=== PATIENT | female | born 1965 | race Caucasian/White ===

== ENCOUNTER 2023-10-04 14:48 | Emergency (ER) | payer BC, SELFPAY ==
[2023-10-04] VITALS (7 sets, daily range): BP systolic 168–180; BP diastolic 101–111; PULSE 74–84; RESP 18; TEMP 36.4; O2SAT 97–98; BMI 39.2
--- NOTE | 2023-10-04 | CRLHL7_ITS ---
For Patients: As a result of the Century Cures Act, medical imaging exams and procedure reports are released immediately into your electronic medical record. You may view this report before your referring provider. If you have questions, please contact your health care provider. INDICATION: Chest pain. TECHNIQUE: Chest 1 views. COMPARISON: None. FINDINGS: Cardiovascular and mediastinum: Heart size and vasculature are normal in caliber and appearance. Lungs and pleural spaces: Lungs are clear. No sign of infiltrate or mass. No sign of pleural effusion. No pneumothorax. Bones and soft tissues: No significant findings. IMPRESSION: No acute or significant findings. Dictated by Jens Tobin MD @ 10/04/2023 3:45:16 PM (Electronically Signed)
--- NOTE | 2023-10-04 15:08 | ED.CHESTPAIN ---
HPI - Chest Pain General Time Seen by Provider: 15:08 Date Seen: 10/04/23 Chief Complaint: Chest Pain Stated Complaint: chest pain Time Seen by Provider: 10/04/23 15:08 Source: patient Mode of arrival: ambulatory Limitations: no limitations History of Present Illness HPI narrative: Cindy is a very pleasant 58-year-old female with history of have 1 ppd tobacco use, hypertension, hyperlipidemia who comes to the emergency room for evaluation regarding chest pain. Patient had the onset of substernal chest pain while working at a computer at approximately 1230. This radiated into her left shoulder and her jaw. She has never experienced this before. It was not associated with shortness of breath nor any nausea. She has not been ill of late. She notes improvement at this time as I am talking to her and notes no discomfort. She had some mild nausea but no vomiting. . No past history of heart attacks. Denies radiation of the pain to her back or history of connective tissue diseases or history of aortic dissection and family. Related Data Home Medications ?Medication ?Instructions ?Recorded ?Confirmed atorvastatin 20 mg tablet 20 mg PO DAILY 10/04/23 10/04/23 chlorthalidone 25 mg tablet 25 mg PO DAILY 10/04/23 10/04/23 hydrochlorothiazide 25 mg tablet 25 mg PO DAILY 10/04/23 10/04/23 losartan 100 mg tablet 100 mg PO DAILY 10/04/23 10/04/23 metoprolol succinate 100 mg 100 mg PO DAILY 10/04/23 10/04/23 tablet,extended release 24 hr Allergies Allergy/AdvReac Type Severity Reaction Status Date / Time No Known Drug Allergies Allergy Verified 10/04/23 14:59 Review of Systems Status of ROS Reports: 10 or more systems reviewed and unremarkable except as noted in History and below Const Denies: fever or chills Eyes Denies: change in vision ENMT Reports: other (Jaw discomfort); Denies: throat pain Cardio Reports: chest pain; Denies: edema, swelling of feet/ankles or shortness of breath with exertion Resp Denies: shortness of breath or cough GI Reports: nausea; Denies: abdominal pain or vomiting Musculo Denies: back pain Integ/Breast Denies: rash Neuro Denies: headache PFSH PFSH Social History Smoking Status: Never smoker Do you use any of these nicotine containing products: None Second hand tobacco smoke exposure: No How often do you have a drink containing alcohol: never How often do you have six or more drinks on one occasion: Never AUDIT-C Alcohol total score: 0 Non-prescribed substance use: denies use service: No Exam Narrative Exam Narrative: Patient is alert and oriented. No acute distress. External ears eyes nose clear. Heart with regular rate and rhythm. Do not auscultate murmur or rub. Lungs are clear bilaterally with the exception of some inspiratory crackles left lower lung area. Abdomen soft nontender. No pulsating mass. Lower extremities without edema. Pedal pulses are intact and symmetrical. Const Vital Signs, click to edit/add: Vital Signs - 24 hr 10/04/23 14:56 10/04/23 15:18 10/04/23 15:19 Temperature 97.5 F L Pulse Rate 81 78 Pulse Rate [Right Pulse Oximeter] 74 Respiratory Rate 18 Blood Pressure 176/103 H Blood Pressure [Right Upper Arm] 180/103 H Pulse Oximetry 97 98 97 Oxygen Delivery Method Room Air 10/04/23 15:21 10/04/23 15:29 10/04/23 15:30 Temperature Pulse Rate 84 76 76 Pulse Rate [Right Pulse Oximeter] Respiratory Rate Blood Pressure 168/111 H 176/110 H Blood Pressure [Right Upper Arm] Pulse Oximetry 98 98 97 Oxygen Delivery Method 10/04/23 15:32 Temperature Pulse Rate 80 Pulse Rate [Right Pulse Oximeter] Respiratory Rate Blood Pressure 176/101 H Blood Pressure [Right Upper Arm] Pulse Oximetry 97 Oxygen Delivery Method Documenting provider has reviewed patient's vital signs: yes Course Course ED Course: Differential diagnosis includes but is not limited to STEMI, non-STEMI, aortic dissection, anxiety. With EKG looking as it does and the symptoms the patient is describing I think we are dealing with a STEMI at this time. There is no radiation of the pain into her back and x-ray does not show evidence of a widened mediastinum and and therefore I do not think that we are dealing with an aortic dissection. Patient is hypertensive at this time with an MT. Will initiate level 1 call to [facility]. In the meantime will order a heparin bolus 4 g followed by heparin drip. Lopressor 2.5 mg IV as patient is hypertensive. She is on metoprolol at home. Will also order ticagrelor 180 mg p.o. and nitroglycerin drip. Given the fact that this appears to be inferior MT will give fluid bolus of 500 mL normal saline to protect against hypotensive episode. Consultations Consultation #1: I had the pleasure of speaking with Dr. Gonzalez who accepts this patient to the medical laboratory specialist direct transfer. Discussed with managed security sales consultant medications that we will be using. Vital Signs Vital signs: Initial Vital Signs Temperature 97.5 F L 10/04/23 14:56 Temperature Source Temporal Artery Scan 10/04/23 14:56 Pulse Rate 74 10/04/23 14:56 Respiratory Rate 18 10/04/23 14:56 Blood Pressure 180/103 H 10/04/23 14:56 Blood Pressure Mean 128 H 10/04/23 14:56 Blood Pressure Position Sitting 10/04/23 14:56 Pulse Oximetry 97 10/04/23 14:56 Oxygen Delivery Method Room Air 10/04/23 14:56 Vital Signs Temperature 97.5 F L 10/04/23 14:56 Pulse Rate 74 10/04/23 14:56 Respiratory Rate 18 10/04/23 14:56 Blood Pressure 180/103 H 10/04/23 14:56 Pulse Oximetry 97 10/04/23 14:56 Oxygen Delivery Method Room Air 10/04/23 14:56 Temperature 97.5 F L 10/04/23 14:56 Pulse Rate 80 10/04/23 15:32 Respiratory Rate 18 10/04/23 14:56 Blood Pressure 176/101 H 10/04/23 15:32 Pulse Oximetry 97 10/04/23 15:32 Oxygen Delivery Method Room Air 10/04/23 14:56 Medications Administered Medications: Discontinued Medications Generic Name Dose Route Start Last Admin Trade Name Freq PRN Reason Stop Dose Admin Sodium Chloride 500 mls @ 500 mls/hr 10/04/23 15:20 10/04/23 15:27 0.9 % Sodium Chloride 500 Ml IV 10/04/23 16:19 500 mls/hr .Q1H ONE Administration Metoprolol Tartrate 2.5 mg 10/04/23 15:21 10/04/23 15:25 Metoprolol Tartrate 1 Mg/Ml Inj IVP 10/04/23 15:22 2.5 mg ONCE ONE Administration MDM - Chest Pain MDM Narrative Medical decision making narrative: 1. STEMI-appears to be inferior with reciprocal changes in 1 and aVL. Patient started on heparin 4000 unit bolus followed by drip. Ticagrelor 180 mg p.o.. Patient took for 2 full baby aspirin this morning. Will also start nitro drip as pain has returned slightly during her stay here. Have also given her 1 dose of Lopressor 2.5 mg. Will repeat that at this time as her blood pressure remains elevated. Initial troponin 0.00. LFTs mildly elevated. 2. Disposition-will transfer to [facility] Dr. Vinson accepting physician Cardiology after viewing EKG. Patient will be ground ambulance ALS transfer. Patient noted to have continued discomfort and thus nitro was increased to 8. With this came in decrease in blood pressure to 137 and therefore we are holding off and any further Lopressor. Lab Data Attestation: I reviewed the patient's lab results. Labs: Lab Results 10/04/23 10/04/23 Range/Units 15:10 15:15 WBC 8.71 Cancelled (4.50-11.00) K/uL Corrected WBC Cancelled RBC 5.12 Cancelled (4.00-5.20) m/uL Hgb 15.3 Cancelled (12.0-16.0) gm/dL Hct 44.2 Cancelled (33.0-51.0) % MCV 86 Cancelled (80-100) fL MCH 30 Cancelled (26-34) pg MCHC 35 Cancelled (32-36) gm/dL RDW Coeff of Loli 12.2 Cancelled (11.5-15.5) % Plt Count 183 Cancelled (140-440) K/uL Neut % (Auto) 58.8 Cancelled (42.0-72.0) % Lymph % (Auto) 28.7 Cancelled (20-44) % Dundy % (Auto) 10.7 Cancelled (0.0-11.0) % Eos % (Auto) 1.0 Cancelled (0.0-7.0) % Baso % (Auto) 0.7 Cancelled (0.0-3.0) % Neut # (Auto) 5.12 Cancelled (1.7-7.0) K/uL Lymph # (Auto) 2.50 Cancelled (0.90-2.90) K/uL Dundy # (Auto) 0.90 Cancelled (0.00-0.90) K/UL Eos # (Auto) 0.09 Cancelled (0.00-0.50) K/uL Baso # (Auto) 0.06 Cancelled (0.00-0.30) K/uL Abs Immat Gran (auto) 0.01 Cancelled (0.00-0.30) K/uL Imm/Tot Granulo (auto) 0.1 Cancelled % Sodium 132 L 133 L (135-149) mmol/L Potassium 3.1 L 3.1 L (3.6-5.1) mmol/L Chloride 95 L 96 (96-114) mmol/L Carbon Dioxide 28 27 (20-32) mmol/L Anion Gap 9 10 (7-15) mEq/L BUN 16 16 (7-30) mg/dL Creatinine 0.7 0.7 (0.5-1.5) mg/dL Estimated Creat Clear 87.27 87.27 Estimated GFR 101 101 ml/min Glucose 120 H 121 H (60-115) mg/dL Calcium 9.6 9.5 (8.4-10.6) mg/dL Total Bilirubin 0.4 (0.1-1.5) mg/dL AST 40 H (12-35) U/L ALT 70 H (4-35) U/L Alkaline Phosphatase 154 H (40-150) U/L C-Reactive Protein 0.6 (0.5-1.0) mg/dL Total Protein 7.5 (6.0-8.3) g/dL Albumin 4.7 (3.3-5.0) g/dL POC Troponin I 0.00 L (0.01-0.04) ng/ml Imaging Data Chest x-ray: Attestation: I have reviewed the pertinent imaging results. My impression: Suboptimal study with poor penetration. No obvious infiltrates or widened mediastinum by my read. Radiologist's impression: Cardiovascular and mediastinum: Heart size and vasculature are normal in caliber and appearance. Lungs and pleural spaces: Lungs are clear. No sign of infiltrate or mass. No sign of pleural effusion. No pneumothorax. Bones and soft tissues: No significant findings. IMPRESSION: No acute or significant findings. ECG Data Attestation: I personally reviewed and interpreted this ECG as follows: ECG interpretation date: 07/15/24 Interpretation: EKG by my read shows sinus rhythm at a rate of 74. ST elevation noted in 3 AVF. Reciprocal changes noted in 1 and aVL. Critical Care Time Critical Care Time Critical Care Time: Yes Attestation: The patient required my highest level preparedness to intervene emergently and I personally spent this critical care time directly and personally managing the patient. This critical care time included: Obtaining a history; Examining the patient; Pulse oximetry; Ordering and reviewing of studies; Arranging urgent treatment with development of a management plan; Evaluation of patients response to treatment; Frequent reassessment discussions with other providers. This critical care time was performed to assess and manage the high probability of imminent life-threatening deterioration that could result in multiorgan failure. It was exclusive of separate billable procedures and treating other patients and teaching time. Total Critical Care Time in Minutes: 45 Discharge Plan Discharge Clinical Impression: ST elevation (STEMI) myocardial infarction Patient Disposition: Xfer [facility] Discharge Location: [facility] Condition: Guarded Prescriptions: No Action atorvastatin 20 mg tablet 20 mg PO DAILY chlorthalidone 25 mg tablet 25 mg PO DAILY hydrochlorothiazide 25 mg tablet 25 mg PO DAILY losartan 100 mg tablet 100 mg PO DAILY metoprolol succinate 100 mg tablet extended release 24 hr 100 mg PO DAILY Stand Alone Forms: [employer] Info Instructions
[2023-10-04] MEDS: METOPROLOL TARTRATE 1 MG/ML inj 2.5 MG IVP (15:25)
[2023-10-04] MEDS: 0.9 % SODIUM CHLORIDE 500 ML 500 ML IV (15:27)
[2023-10-04 15:28] LABS: Basophils Absolute Auto 0.06 K/uL (0.00-0.30); Basophils Percent Auto 0.7 % (0.0-3.0); Eosinophils Absolute Auto 0.09 K/uL (0.00-0.50); Hematocrit 44.2 % (33.0-51.0); Hemoglobin* 15.3 gm/dL (12.0-16.0); Immature Granulocytes Abs Auto 0.01 K/uL (0.00-0.30); Immature Granulocytes Pct Auto 0.1 %; Lymphocytes Percent Auto 28.7 % (20-44); Mean Corpuscular HGB Conc 35 gm/dL (32-36); Mean Corpuscular Hemoglobin 30 pg (26-34); Mean Corpuscular Volume 86 fL (80-100); Monocytes Percent Auto 10.7 % (0.0-11.0); Neutrophils Absolute Auto 5.12 K/uL (1.7-7.0); Neutrophils Percent Auto 58.8 % (42.0-72.0); Platelet Count* 183 K/uL (140-440); RDW Coefficient of Variation % 12.2 % (11.5-15.5); Red Blood Count 5.12 m/uL (4.00-5.20); White Blood Count* 8.71 K/uL (4.50-11.00)
[2023-10-04 15:29] LABS: Slide Review Reflex No
[2023-10-04 15:40] LABS: Chloride* 95 mmol/L (96-114); Potassium* 3.1 mmol/L (3.6-5.1); Sodium* 132 mmol/L (135-149)
[2023-10-04 15:43] LABS: Anion Gap 9 mEq/L (7-15); Blood Urea Nitrogen* 16 mg/dL (7-30); Carbon Dioxide* 28 mmol/L (20-32); Creatinine* 0.7 mg/dL (0.5-1.5); Est. Creatinine Clearance* 87.27; Estimated Glomerular Filt Rate 101 ml/min; Glucose* 120 mg/dL (60-115)
[2023-10-04 15:44] LABS: Calcium* 9.6 mg/dL (8.4-10.6)
[2023-10-04 15:54] LABS: Albumin* 4.7 g/dL (3.3-5.0); Chloride* 96 mmol/L (96-114); Sodium* 133 mmol/L (135-149)
[2023-10-04 15:55] LABS: Potassium* 3.1 mmol/L (3.6-5.1)
[2023-10-04 15:57] LABS: Alkaline Phosphatase* 154 U/L (40-150); Anion Gap 10 mEq/L (7-15); Aspartate Amino Transferase* 40 U/L (12-35); Bilirubin Total* 0.4 mg/dL (0.1-1.5); Carbon Dioxide* 27 mmol/L (20-32); Creatinine* 0.7 mg/dL (0.5-1.5); Est. Creatinine Clearance* 87.27; Estimated Glomerular Filt Rate 101 ml/min; Total Protein* 7.5 g/dL (6.0-8.3)
[2023-10-04 15:58] LABS: Alanine Aminotransferase* 70 U/L (4-35); Blood Urea Nitrogen* 16 mg/dL (7-30); Calcium* 9.5 mg/dL (8.4-10.6); Glucose* 121 mg/dL (60-115)
[2023-10-04 16:00] LABS: C Reactive Protein* 0.6 mg/dL (0.5-1.0)
== END 2023-10-04 16:22 | disposition short-term general hospital (02) ==
LOC: ED 15:55
PROVIDERS: Emergency Provider Family Medicine
DX: I21.4 Non-ST elevation (NSTEMI) myocardial infarction (principal)
CPT/HCPCS: 36415; 71045; 80048; 80053; 84484; 85025; 86140; 93005; 99285; 99291; J7030

== ENCOUNTER 2023-10-04 15:48 | Outpatient (CLI) | payer BC, SELFPAY | END 2023-10-04 15:49 | disposition home or self-care (01) | LOC: AMB 10-08 23:38 | PROVIDERS: Visit Provider Family Medicine | DX: I21.3 ST elevation (STEMI) myocardial infarction of unspecified site (principal) | CPT/HCPCS: A0425; A0427 ==

== ENCOUNTER 2024-09-21 15:14 | Emergency (ER) | payer BC, SELFPAY ==
--- OUTSIDE RECORDS SUMMARY | 2024-09-21 15:16 | XMS_ITS | Clinical Summary ---
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 Active aspirin chewable 81 mg chewable tabletIndications: ST elevation myocardial infarction (STEMI) involving other coronary artery (HC),ASHD (arteriosclerotic heart disease),S/P drug eluting coronary stent placement Take 1 Tablet (81 mg) by mouth or nasogastric tube once daily. 90 Tablet 3 4 11:46 AM CDT 10/06/19 24 Active nitroglycerin (NITROSTAT) 0.4 mg sublingual tabletIndications: ST elevation myocardial infarction (STEMI) involving other coronary artery (HC),ASHD (arteriosclerotic heart disease),S/P drug eluting coronary stent placement Place 1 Tablet (0.4 mg) under the tongue every 5 minutes if needed for Chest Pain. Up to 3 tablets in 15 minutes. 25 Tablet 1 4 11:46 AM CDT 10/05/19 24 Active evolocumab (Repatha SureClick) 140 mg/mL subcutaneous pen injectorIndication s:Hyperlipidemia, unspecified hyperlipidemia type Inject 1 mL (140 mg) subcutaneous every 2 weeks. Inject into abdomen, thigh, or upper arm; rotate injection sites. Have fasting lipids re-checked 3 months after starting Rx. Plan for labs prior to 03/2024. Further dosing to follow lab review. 6 mL 1 12/16/19 24 Active atorvastatin (LIPITOR) [address]: [address] elevation myocardial infarction (STEMI) involving other coronary artery (HC),Mixed hyperlipidemia,LUPIS D (arteriosclerotic heart disease) Take 1 Tablet (80 mg) by mouth once daily in the evening. 90 Tablet 3 12/20/19 24 Active chlorthalidone (HYGROTON) 25 mg tabletIndications: Hypertension, unspecified type Take 1 Tablet (25 mg) by mouth once daily in the morning. 90 Tablet 2 01/27/20 24 Active metoprolol succinate (TOPROL XL) 100 mg Sustained-Release tabletIndications: Hypertension, unspecified type Take 1 Tablet (100 mg) by mouth once daily. 90 Tablet 2 01/27/20 24 Active methocarbamoL 500 mg tabletIndications: Chronic bilateral low back pain without sciatica 500mg ( 1 tab) at bedtime by mouth, as needed for muscle pain. This muscle relaxer may make you drowsy/ less alert. 25 Tablet 01/28/20 24 Active losartan 100 mg tabletIndications: Hypertension, unspecified type TAKE ONE TABLET BY MOUTH EVERY DAY 90 Tablet 1 08/16/19 25 Active clopidogreL [address]: [address] elevation myocardial infarction (STEMI) involving other coronary artery (HC),ASHD (arteriosclerotic heart disease),S/P drug eluting coronary stent placement Take 1 Tablet (75 mg) by mouth once daily in the morning. Due for cardiology follow-up in October. Please call to schedule. 90 Tablet 09/21/19 25 Active clopidogreL (PLAVIX) [address]: [address] elevation myocardial infarction (STEMI) involving other coronary artery (HC),ASHD (arteriosclerotic heart disease),S/P drug eluting coronary stent placement Take 1 Tablet (75 mg) by mouth once daily in the morning. 90 Tablet 3 4 11:46 AM CDT 10/06/19 24 025 Discontin ued(Reord er (E-cancel not sent)) Active Problems Problem Noted Date Diagnosed Date ST elevation myocardial infarction (STEMI) 10/03 Overview (10/10/2023): September 2023: S/P stent. Pap smear for cervical cancer screening 10/21/19 22 Overview (12/30/2021): Pap/HPV due 10/2026 Poor sleep hygiene 12/14/2017 Adenomatous colon polyp 11/05/2017 Overview (11/05/2017): Colonoscopy 10/2017 polyp, repeat in 5 years Hyperlipidemia 10/07/2017 HTN (hypertension) 08/06/2017 Depression, major, single episode, moderate 06/21 Anxiety 07/14/2017 Resolved Problems Problem Noted Date Diagnosed Date Resolved Date Anemia due to blood loss, chronic 07/14/2017 10/06/2017 Menorrhagia with irregular cycle 07/14/2017 10/06/2017 Encounters Date Type Department Care Team Description 09/20/2024 Refill [facility] [address] [place] [address] [place] [address] Jeramie Pablo MD Refill Request 08/14/2024 Refill [facility] [address] [place] [address] Abraham Rust MD Refill Request (Losartan) from Last 3 Months Immunizations Immunization Administration Dates Next Due COVID-19 vaccine (Moderna 100mcg/0.5mL) JAE REYNOLDS 04/10/2021 Influenza, IIV3 (Age 6-35 mos) 12/25/2008 Influenza, IIV3 (Age >=3 years) 01/02/2010 Influenza, IIV4 02/24/2018 Tdap 08/03/2017 Zoster (Shingrix-RZV, recombinant) 11/02/2022 Family History Medical History Relation Name Comments Diabetes Father Arthritis Maternal Grandmother Heart Disease Maternal Grandmother Stroke Maternal Grandmother Arthritis Mother Cancer Paternal Grandfather Arthritis Paternal Grandmother Cancer Paternal Grandmother Anesthesia Problem No Family History Blood Disease No Family History Cancer-breast No Family History Cancer-ovarian No Family History Relation Name Status Comments Brother Alive Daughter Alive Father Alive Maternal Aunt Alive Maternal Grandfather Maternal Grandmother Maternal Uncle Alive Mother Alive Paternal Aunt Alive Paternal Grandfather Paternal Grandmother Paternal Uncle Alive Sister Alive Son Alive Social History Tobacco Use Types Packs/Day Years Used Date Smoking Tobacco: Former Cigarettes 1 25 Smokeless Tobacco: Never Tobacco Cessation:Counseling Given: Yes Comments:Quite on 10/04/2023 0.5 to 1 ppd-currently 1 ppd Alcohol Use Standard Drinks/Week Comments Yes 6.7 (1 standard drink = 0.6 oz p ure alcohol) PHQ-2 Answer Date Recorded PHQ-2 TOTAL SCORE 2 01/27/2024 Social Connections Answer Date Recorded Do you often feel lonely or isolated from those around you? 0 01/27/2024 Financial Resource Strain Answer Date R ecorded Difficulty of Paying Living Expenses 3 01/27/2024 Difficulty of Paying Living Expenses Not on file 01/27/2024 Food Insecurity Answer Date Recorded Do you worry your food will run out before you are able to buy more? 1 01/27/2024 Transportation Needs Answer Date Record ed Does lack of transportation keep you from medica l appointments? 1 01/27/2024 Does lack of transportation keep you from work, meetings or getting things that you need? 1 01/27/2024 Housing Stability Answer Date Recorded What is your housing situation today? 1 01/27/2024 Utilities Answer Date Recorded Do you have trouble paying f or utilities (for example, heat, electricity, water, phone)? 1 01/27/2024 Comments No Sex and Gender Information Value Date Recorded Sex Assigned at Not on file Legal Sex Female 5:24 AM TRANSITION NURSE Gender Identity Not on file Sexual Orientation Not on file Obstetrics History Para Term AB IAB SAB Ectopic Multiple Livin g Live Births 2 2 2 0 0 0 0 0 2 Date Outcome GA Total Labor Labor/2nd/3rd Weight Sex Type Anes PTL Lori A1 A5 Name Clin Term Term Last Filed Vital Signs Vital Sign Reading Time Taken Comments Blood Pressure 132/64 02/21/2024 3:18 PM TRANSITION NURSE Pulse 74 02/21/2024 2:45 PM TRANSITION NURSE Temperature 36.8 C (98.2 F) 10/05/2023 8:09 AM CDT Respiratory Rate 18 10/05/2023 8:09 AM CDT Oxygen Saturation 97% 01/27/2024 3:34 PM TRANSITION NURSE Inhaled Oxygen Concentration - - Weight 121.7 kg (268 lb 4.8 oz) 01/27/2024 3:34 PM TRANSITION NURSE Height 170.2 cm (5' 7) 10/07/2023 1:55 PM CDT Body Mass Index 42.02 10/07/2023 1:55 PM CDT Plan of Treatment Upcoming Encounters Date Type Department Care Team (Late st Contact Info) Description 10/26/2024 7:00 AM CDT Office Visit [facility] [address] [place] [address] Abraham Rust MD [address] [place] [address] Health Maintenance Due Date Last Done Comments HIV for age 15-65 07/27/1982 Hepatitis B series for 19+ ( 1 of 3 - 19+ 3-dose series) 07/27/1986 Pneumococcal series for age 50+ (1 of 2 - PCV) 07/27/[address] (for lung CA) ag e 50-80 07/27/2017 Colonoscopy through age 75 11/03/2022 11/03/2017, Zoster (shingles) series for age 50+ (2 of 2) 12/28/2022 11/02/2022 COVID-19 vaccine series ( season) 2023 04/10/2021, 08/30/2020, 08/02/2020 BMI (ht and wt on same day) for age 18+ 10/06/2024 10/07/2023, 10/31/2021, 09/18/2021, Additional history exists Influenza Vaccine (#1) 2024 8, 01/02/2010, 12/25/2008 Depression screening for age 12+ 02/20/2025 02/21/2024, 01/28/2024, 01/27/2024, Additional history exists Mammogram for age 45-75 02/20/2026 02/21/20 24, 10/31/2021, 02/13/2020, Additional history exists Pap test for age 21-65 10/31/2026 2, 10/31/2021, 10/06/2017, Additional history exists Tetanus booster 08/04/2027 08/03/2017 Lipids for age 45-75 12/13/2028 12/14/2023, 11/18/2023, 10/05/2023, Additional history exists Hepatitis C screening for ag e 18-79 Completed 09/18/2021 Procedures Procedure Name Priority Date/Time Associated Diagnosis Comments XR MAMMO BILAT SCREENING Routine 02/21/2024 3:36 PM TRANSITION NURSE Visit for screening mammogram LIPID PANEL W REFLEX MEASURED LDL Routine 12/14/2023 7:[address] elevation myocardial infarction (STEMI) involving other coronary artery (HC) Mixed hyperlipidemia HPV HIGH RISK Routine 10/31/2021 3:01 PM CDT Screening for malignant neoplasm of cervix ANTI HCV Routine 09/18/2021 2:57 PM CDT Need for hepatitis C screening test COLONOSCOPY 11/03/2017 7:36 AM CDT from Last 3 Months or Most Recently Relevant to Health Maintenance Results * XR MAMMO BILAT SCREENING (02/21/2024 3:36 PM TRANSITION NURSE) Anatomical Region Laterality Modality BREASTS, Breast Left, Breast Right Bilateral Mammography Impressions 02/23/2024 3:37 PM TRANSITION NURSE There is no radiographic evidence for malignancy. Recommend annual mammograms. MAMMOGRAM ASSESSMENT: ACR 1 Negative PATIENTS: You will also receive a letter with your examination results in an easy to read format. If you have questions about your results, please contact your referring provider. Narrative 02/23/2024 3:37 PM TRANSITION NURSE For Patients: As a result of the 21st Century Cures Act, medical imaging exams and procedure reports are released immediately into your electronic medical record. You may view this report before your referring provider. If you have questions, please contact your health care provider. XR MAMMO BILAT SCREENING [[id number]] CLINICAL HISTORY: This is an asymptomatic 58 y.o. patient. INDICATION FOR EXAM: Mammogram Screening. TECHNIQUE: CC & MLO views were obtained. This study was evaluated with the assistance of Computer-Aided Detection. COMPARISON FILM: Yes 10/31/21 [employer] 02/13/20 [facility] FINDINGS: There are scattered areas of fibroglandular density. There are no dominant masses, suspicious micro calcifications or areas of architectural distortion. Abraham Rust MD MAMMO Final Res ult * (ABNORMAL) LIPID PANEL W REFLEX MEASURED LDL (12/14/2023 7:03 AM CDT) CHOLESTEROL, TOTAL 158 <200 mg/dL [facility] HDL CHOLESTEROL 47(L) > OR = 50 mg/dL [facility] TRIGLYCERIDES 161(H) <150 mg/dL [facility] LDL-CHOLESTEROL 85 mg/dL (calc) [facility] Comment: Reference range: <100 Desirable range <100 mg/dL for primary prevention; <70 mg/dL for patients with CHD or diabetic patients with > or = 2 CHD risk factors. LDL-C is now calculated using the Hussein-Tracie calculation, which is a validated novel method providing better accuracy than the Friedewald equation in the estimation of LDL-C. Hussein SS et al. VERA. 2013;310(19): 5186-2714 (http://education.Scopely/faq/IHB210) CHOL/HDLC RATIO 3.4 <5.0 (calc) [facility] NON HDL CHOLESTEROL 111 <130 mg/dL (calc) [facility] Comment: For patients with diabetes plus 1 major ASCVD risk factor, treating to a non-HDL-C goal of <100 mg/dL (LDL-C of <70 mg/dL) is considered a therapeutic option. Blood BLOOD SPECIMEN / Unknown 12/14/2023 7:03 AM CDT 12/14/2023 7:04 AM CDT Jeramie Pablo MD CHEMISTRY Final Res ult [facility] [address] [place] [address], [facility] [address] [facility] [address] * HPV HIGH RISK (10/31/2021 3:01 PM CDT) TYPE 16 Negative Negative 11/04/2021 1:40 PM CDT [facility] TYPE 18 Negative Negative 11/04/2021 1:40 PM CDT [facility] OTHER HIGH RISK TYPES Negative Negative 11/04/2021 1:40 PM CDT [facility] Other (Cervical) Non-Blood / Unknown 10/31/2021 3:01 PM CDT 11/03/2021 9:04 AM CDT Narrative [facility] - 11/04/2021 1:40 PM CDT HPV types 16, 18, 31, 33, 35, 39, 45, 51, 52, 56, 58, 59, 66 and 68 DNA were undetectable or below the pre-set threshold. Methodology: Laron Yandel 4800 HPV Test Vicki SOUZA MICROBIOLOGY Final Resu lt [facility] [address] [place] [address], [place] * ANTI HCV (09/18/2021 2:57 PM CDT) HEPATITIS C ANTIBODY Non-React clare Non-React clare 09/19/2021 4:30 AM CDT [facility] Comment:Antibodies to HCV no t detected; does not exclude the possibility of exposure to HCV. Blood BLOOD SPECIMEN / Unknown Venipuncture / Unknown 09/18/2021 2:57 PM CDT 09/18/2021 2:58 PM CDT Vicki SOUZA SEND OUTS Final Resu lt [facility] [address] [place] [address], [place] * COLONOSCOPY (11/03/2017 7:36 AM CDT) 11/03/2017 7:36 AM CDT Narrative Transcriptions Hussein Painting MD - 11/03/2017 8:28 AM CDT Patient Name: Cindy Coronado Procedure Date: 11/03/2017 Gender: Female Date of : 1965 Admit Type: Outpatient Procedure: Colonoscopy Proceduralist: Hussein Painting MD , Azeb Jordan (Nurse) Indications/Pre-Op Diagnosis: Screening for colorectal malignant neoplasm, This is the patient's first colonoscopy Medications: Fentanyl 100 micrograms IV, Midazolam 2 mgIV, The level of sedation administered wasmoderate Procedure Description: The patient had risks, benefits and alternatives explained to andgave informed consent. The patient had a stable cardiopulmonary status and judged an adequate candidate for conscious sedation. The Colon CF-H180AL [id number] was passed through the anus and advancedto the cecum, identified by appendiceal orifice and ileocecal valve. The colonoscopy was performed without difficulty. The patient toleratedthe procedure well. The quality of the bowel preparation was good. The ileocecal valve, appendiceal orifice, and rectum were photographed.The ileocecal valve, appendiceal orifice, and rectum were photographed. Complications: No immediate complications. Estimated Blood Loss & Specimen: Estimated blood loss: none. Specimen collected - Yes and sent to Laboratory Findings: The perianal and digital rectal examinations were normal. A 3 mm polyp was found in the descending colon. The polyp wassessile. The polyp was removed with a cold biopsy forceps. Resection and retrieval were complete. A 3 mm polyp was found in the rectum. The polyp was sessile. Thepolyp was removed with a cold biopsy forceps. Resection and retrieval were complete. The exam was otherwise without abnormality on direct and retroflexion views. Impressions/Post-Op Diagnosis: - One 3 mm polyp in the descending colon, removed with a cold biopsy forceps. Resected and retrieved. - One 3 mm polyp in the rectum, removed with a cold biopsy forceps. Resected and retrieved. - The examination was otherwise normal on direct and retroflexionviews. Recommendation: - Patient has a contact number available for emergencies. The signsand symptoms of potential delayed complications were discussed with the patient. Return to normal activities tomorrow. Written discharge instructions were provided to the patient. - Resume previous diet. - Continue present medications. - Await pathology results. - Repeat colonoscopy is recommended. The colonoscopy date will be determined after pathology results from today's exam become available for review. Moderate Sedation: Moderate (conscious) sedation was administered by the endoscopy nurse and supervised by the endoscopist. The following parameters were monitored: oxygen saturation, heart rate, respiratory rate, blood pressure, adequacy of pulmonary ventilation and reponse to care. [facility] and nursing notes for moderate sedation details. Total physician intraservice time was 18 minutes. Hussein Painting MD 11/03/2017 8:28:46 AM This report has been signed electronically. Note Initiated On: 11/03/2017 7:36 AM Procedure Code(s): --- Professional --- 67793, Colonoscopy, flexible; with biopsy, single or multiple Diagnosis Code(s): --- Professional --- Z12.11, Encounter for screening formalignant neoplasm of colon D12.4, Benign neoplasm of descending colon K62.1, Rectal polyp CPT copyright 2017 [employer]. All rights reserved. The codes documented in this report are preliminary and upon senior network security engineer reviewmay be revised to meet current compliance requirements. Scope In: 8:08:28 AM Scope Withdrawal Time 0 hours 13 minutes 13 seconds Scope Out: 8:24:30 AM us Hussein Painting MD PROCEDURE ORD Final Res ult from Last 3 Months or Most Recently Relevant to Health Maintenance Insurance BLUE [employer] OF NON-CO-ITS Advance Directives * Full Code (Latest Code Status on File) Date Activated Date Inactivated Comments 10/05/2023 8:36 AM 10/05/2023 6:37 PM Question Answer Comments Code Status Discussion: Reviewed Preferences * Full Code Date Activated Date Inactivated Comments 10/04/2023 5:21 PM 10/05/2023 8:36 AM Question Answer Comments Code Status Discussion: Unable to Assess Preferences, Provider to review later Care Teams 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
[2024-09-21 15:22] VITALS: BP 186/81; PULSE 90; RESP 18; TEMP 36.8; O2SAT 97; BMI 39.2
[2024-09-21 16:00] LABS: Troponin, Point-of-Care* 0.00 ng/ml (0.01-0.04)
--- NOTE | 2024-09-21 16:07 | CRLHL7_ITS ---
For Patients: As a result of the Century Cures Act, medical imaging exams and procedure reports are released immediately into your electronic medical record. You may view this report before your referring provider. If you have questions, please contact your health care provider. INDICATION: Left upper quadrant and left flank pain TECHNIQUE: CT of the abdomen and pelvis was obtained with 120 mL of Isovue 370 intravenous contrast. Please note that all CT scans at this facility use dose modulation, iterative reconstruction, and/or weight-based dosing when appropriate to reduce radiation dose to as low as reasonably achievable. COMPARISON: None. FINDINGS: Lower thorax: Normal. Liver and biliary tree: Normal. Gallbladder: Normal. Spleen: Normal. Pancreas: Normal. Adrenal glands: Normal. Kidneys and ureters: No hydronephrosis or obstructing renal calculi. Gastrointestinal tract: Small to moderate stool burden. Normal appendix. No evidence of bowel obstruction. Peritoneal cavity: Normal. Bladder: Decompressed. Pelvic organs: Likely small uterine fibroids. Vasculature: Moderate calcification. Mildly ectatic infrarenal abdominal aorta measuring up to 2.6 centimeter (2/66). Lymph nodes: Normal. Abdominal wall: Small fat containing periumbilical hernia. Musculoskeletal: Mild degenerative changes of the visualized spine and bilateral hips. IMPRESSION: 1. Small to moderate stool burden. No evidence of bowel obstruction. 2. No hydronephrosis or obstructing renal calculi. Please note that all CT scans at this facility use dose modulation, iterative reconstruction, and/or weight-based dosing when appropriate to reduce radiation dose to as low as reasonably achievable. Dictated by Nasir Lewis MD @ 09/21/2024 5:29:58 PM (Electronically Signed)
--- NOTE | 2024-09-21 16:07 | CRLHL7_ITS ---
For Patients: As a result of the Century Cures Act, medical imaging exams and procedure reports are released immediately into your electronic medical record. You may view this report before your referring provider. If you have questions, please contact your health care provider. Indication: Chest pain Technique: PA and lateral views of the chest. Comparison: 10/04/2023. Findings: Mildly enlarged cardiomediastinal silhouette. No focal consolidation, pleural effusions, or visualized pneumothorax. [id number] degenerative changes of the visualized spine. Impression: No acute cardiopulmonary disease. Dictated by Nasir Lewis MD @ 09/21/2024 5:20:55 PM (Electronically Signed)
--- NOTE | 2024-09-21 16:15 | ED.ABDPAIN ---
HPI - Abdominal Pain General Date Seen: 09/21/24 Chief Complaint: Abdominal Pain Stated Complaint: L side pain, abdomen/chest Time Seen by Provider: 09/21/24 15:59 Source: patient Mode of arrival: ambulatory Limitations: no limitations History of Present Illness HPI narrative: Patient is a 59-year-old female presenting to emergency department for left upper quadrant pain and left flank pain along with intermittent chest pain. She states the symptoms have been going on for the past 3 days. Pain feels like it starts in left upper quadrant and shoots through to her left flank. Delete still in time she had pain like this before was 1 or 2 years ago for about 20 minutes. States currently the pain seems very positional and is better when she sits up this worse when she is lying down or standing up. Has not had any diarrhea or constipation. Has had intermittent dysuria for the past 3 months. Has no associated nausea. Has been eating and drinking without issues. No other abdominal complaints. She is also having intermittent chest pain. She states it will happen a few times a day which she gets 1 or 2 seconds of left upper achy chest pain. She has had a IA before requiring stent. This occurred about a year ago. She does state specifically that the previous episode of left upper quadrant abdominal pain was not near the time frame of the IA. she denies chest pain like this in states her mi felt very different. Nothing seems to make the pain better worsen seems to just come randomly. No history of blood clots. No history of lung disease. Related Data Home Medications ?Medication ?Instructions ?Recorded ?Confirmed chlorthalidone 25 mg tablet 25 mg PO DAILY 10/04/23 09/21/24 losartan 100 mg tablet 100 mg PO DAILY 10/04/23 09/21/24 metoprolol succinate 100 mg 100 mg PO DAILY 10/04/23 09/21/24 tablet,extended release 24 hr aspirin 81 mg tablet,delayed 81 mg PO DAILY 09/21/24 09/21/24 release (Adult Aspirin Regimen) atorvastatin 80 mg tablet 80 mg PO QPM 09/21/24 09/21/24 clopidogrel 75 mg tablet 75 mg PO DAILY 09/21/24 09/21/24 Allergies Allergy/AdvReac Type Severity Reaction Status Date / Time No Known Drug Allergies Allergy Verified 10/04/23 14:59 Review of Systems Status of ROS Reports: 10 or more systems reviewed and unremarkable except as noted in History and below [facility] Social History Smoking Status: Never smoker Do you use any of these nicotine containing products: None Second hand tobacco smoke exposure: No How often do you have a drink containing alcohol: never How often do you have six or more drinks on one occasion: Never AUDIT-C Alcohol total score: 0 Non-prescribed substance use: denies use service: No Exam Narrative: Exam Narrative: Const: Well-nourished, Well-developed, in mild distress Eyes: PERRL, no conjunctival injection, and symmetrical lids HENT: Atraumatic external nose and ears. Moist mucous membranes. Neck: Symmetric, trachea midline, No thyromegaly. CVS: RRR, No murmurs or gallops. Peripheral pulses 2+ and equal in all extremities RESP: Unlabored respiratory effort. Clear to auscultation bilaterally. GI: Mild left upper quadrant tenderness, no CVA tenderness, Nondistended, No rebound or guarding. MSK:Extremities w/o deformity, Normal Active ROM, no chest tenderness Skin: Warm, Dry. No rashes or lesions. Neuro: Normal Muscle tone, No focal neurological deficits. Psych: Awake, Alert, & Oriented x3. Appropriate mood and affect. Const: Vital Signs, click to edit/add: Vital Signs - 24 hr 09/21/24 15:22 Temperature 98.3 F Pulse Rate [Right Pulse Oximeter] 90 Respiratory Rate 18 Blood Pressure [Ri ght Upper Arm] 186/81 H Pulse Oximetry 97 Oxygen Delivery Me thod Room Air Course Vital Signs Vital signs: Initial Vital Signs Temperature 98.3 F 09/21/24 15:22 Temperature Source Temporal Artery Scan 09/21/24 15:22 Pulse Rate 90 09/21/24 15:22 Pulse Rhythm Regular 09/21/24 15:22 Pulse Strength 3+ Normal 09/21/24 15:22 Respiratory Rate 18 09/21/24 15:22 Blood Pressure 186/81 H 09/21/24 15:22 Blood Pressure Mean 116 H 09/21/24 15:22 Blood Pressure Position Sitting 09/21/24 15:22 Pulse Oximetry 97 09/21/24 15:22 Oxygen Delivery Method Room Air 09/21/24 15:22 Vital Signs Temperature 98.3 F 09/21/24 15:22 Pulse Rate 90 09/21/24 15:22 Respiratory Rate 18 09/21/24 15:22 Blood Pressure 186/81 H 09/21/24 15:22 Pulse Oximetry 97 09/21/24 15:22 Oxygen Delivery Method Room Air 09/21/24 15:22 Temperature 98.3 F 09/21/24 15:22 Pulse Rate 90 09/21/24 15:22 Respiratory Rate 18 09/21/24 15:22 Blood Pressure 186/81 H 09/21/24 15:22 Pulse Oximetry 97 09/21/24 15:22 Oxygen Delivery Method Room Air 09/21/24 15:22 MDM - Abdominal Pain MDM Narrative Medical decision making narrative: Patient is a 59-year-old female presenting for abdominal pain and chest pain. The differential diagnosis of chest pain is broad and includes common etiologies such as musculoskeletal strain, GERD, pneumonia, etc. More serious etiologies considered include PE, coronary artery disease, pneumothorax, aortic dissection, aortic aneurysm. I do not believe this is a PE, aortic dissection, aortic aneurysm. She does have a history of coronary artery disease I will do a troponin and EKG. Chest x-ray ordered to look for signs of pneumonia or pneumothorax. For her abdominal pain differential includes splenic issues. Could also be a related to her kidney. With her being position was this seems likely to be musculoskeletal will do a CT scan with IV contrast for better evaluation for possible splenic infarcts, splenic lesions, kidney lesions, nephrolithiasis. She is not wanting anything for pain at this time. Will do a CBC, CMP, lipase, magnesium, urinalysis. Lab Data Labs: Lab Results 09/21/24 Range/Units 15:45 POC Troponin I 0.00 L (0.01-0.04) ng/ml Discharge Plan Discharge Prescriptions: No Action chlorthalidone 25 mg tablet 25 mg PO DAILY losartan 100 mg tablet 100 mg PO DAILY metoprolol succinate 100 mg tablet extended release 24 hr 100 mg PO DAILY clopidogrel 75 mg tablet 75 mg PO DAILY aspirin [Adult Aspirin Regimen] 81 mg tablet,delayed release (DR/EC) 81 mg PO DAILY atorvastatin 80 mg tablet 80 mg PO QPM Follow Up/Referrals: Provider,Not a Local [Primary Care Provider, Family Practice]
[2024-09-21 16:28] LABS: Albumin* 4.8 g/dL (3.3-5.0); Chloride* 101 mmol/L (96-114); Potassium* 3.8 mmol/L (3.6-5.1); Sodium* 139 mmol/L (135-149)
[2024-09-21 16:30] LABS: Alanine Aminotransferase* 124 U/L (4-35); Anion Gap 10 mEq/L (7-15); Aspartate Amino Transferase* 84 U/L (12-35); Blood Urea Nitrogen* 22 mg/dL (7-30); Carbon Dioxide* 28 mmol/L (20-32); Creatinine* 0.9 mg/dL (0.5-1.5); Est. Creatinine Clearance* 67.07; Estimated Glomerular Filt Rate 75 ml/min
[2024-09-21 16:31] LABS: Alkaline Phosphatase* 102 U/L (40-150); Bilirubin Total* 0.7 mg/dL (0.1-1.5); Calcium* 9.8 mg/dL (8.4-10.6); Glucose* 94 mg/dL (60-115); Total Protein* 8.1 g/dL (6.0-8.3)
[2024-09-21 16:35] LABS: Hematocrit 42.0 % (33.0-51.0); Hemoglobin* 14.3 gm/dL (12.0-16.0); Immature Granulocytes Abs Auto 0.12 K/uL (0.00-0.30); Immature Granulocytes Pct Auto 1.1 %; Lymphocytes Absolute Auto 2.46 K/uL (0.90-2.90); Mean Corpuscular HGB Conc 34 gm/dL (32-36); Mean Corpuscular Hemoglobin 30 pg (26-34); Mean Corpuscular Volume 88 fL (80-100); RDW Coefficient of Variation % 12.8 % (11.5-15.5); Red Blood Count 4.78 m/uL (4.00-5.20); White Blood Count* 10.53 K/uL (4.50-11.00)
[2024-09-21 16:37] LABS: Slide Review Reflex No
[2024-09-21 16:46] LABS: Appearance Urine Slightly Cloudy (Clear)
[2024-09-21 17:06] VITALS: BP 130/81; PULSE 84; RESP 16; O2SAT 98
--- NOTE | 2024-09-21 17:54 | ED.ABDPAIN ---
HPI - Abdominal Pain General Date Seen: 09/21/24 Chief Complaint: Abdominal Pain Stated Complaint: L side pain, abdomen/chest Time Seen by Provider: 09/21/24 15:59 Source: patient Mode of arrival: ambulatory Limitations: no limitations History of Present Illness HPI narrative: Patient is a 59-year-old female presenting to emergency department for left upper quadrant pain and left flank pain along with intermittent chest pain. She states the symptoms have been going on for the past 3 days. Pain feels like it starts in left upper quadrant and shoots through to her left flank. Delete still in time she had pain like this before was 1 or 2 years ago for about 20 minutes. States currently the pain seems very positional and is better when she sits up this worse when she is lying down or standing up. Has not had any diarrhea or constipation. Has had intermittent dysuria for the past 3 months. Has no associated nausea. Has been eating and drinking without issues. No other abdominal complaints. She is also having intermittent chest pain. She states it will happen a few times a day which she gets 1 or 2 seconds of left upper achy chest pain. She has had a OH before requiring stent. This occurred about a year ago. She does state specifically that the previous episode of left upper quadrant abdominal pain was not near the time frame of the OH. she denies chest pain like this in states her mi felt very different. Nothing seems to make the pain better worsen seems to just come randomly. No history of blood clots. No history of lung disease. Related Data Home Medications ?Medication ?Instructions ?Recorded ?Confirmed chlorthalidone 25 mg tablet 25 mg PO DAILY 10/04/23 09/21/24 losartan 100 mg tablet 100 mg PO DAILY 10/04/23 09/21/24 metoprolol succinate 100 mg 100 mg PO DAILY 10/04/23 09/21/24 tablet,extended release 24 hr aspirin 81 mg tablet,delayed 81 mg PO DAILY 09/21/24 09/21/24 release (Adult Aspirin Regimen) atorvastatin 80 mg tablet 80 mg PO QPM 09/21/24 09/21/24 clopidogrel 75 mg tablet 75 mg PO DAILY 09/21/24 09/21/24 Allergies Allergy/AdvReac Type Severity Reaction Status Date / Time No Known Drug Allergies Allergy Verified 10/04/23 14:59 Review of Systems Status of ROS Reports: 10 or more systems reviewed and unremarkable except as noted in History and below [facility] Social History Smoking Status: Never smoker Do you use any of these nicotine containing products: None Second hand tobacco smoke exposure: No How often do you have a drink containing alcohol: never How often do you have six or more drinks on one occasion: Never AUDIT-C Alcohol total score: 0 Non-prescribed substance use: denies use service: No Exam Narrative: Exam Narrative: Const: Well-nourished, Well-developed, in mild distress Eyes: PERRL, no conjunctival injection, and symmetrical lids HENT: Atraumatic external nose and ears. Moist mucous membranes. Neck: Symmetric, trachea midline, No thyromegaly. CVS: RRR, No murmurs or gallops. Peripheral pulses 2+ and equal in all extremities RESP: Unlabored respiratory effort. Clear to auscultation bilaterally. GI: Mild left upper quadrant tenderness, no CVA tenderness, Nondistended, No rebound or guarding. MSK:Extremities w/o deformity, Normal Active ROM, no chest tenderness Skin: Warm, Dry. No rashes or lesions. Neuro: Normal Muscle tone, No focal neurological deficits. Psych: Awake, Alert, & Oriented x3. Appropriate mood and affect. Const: Vital Signs, click to edit/add: Vital Signs - 24 hr 09/21/24 15:22 09/21/24 17:06 Temperature 98.3 F Pulse Rate [Right Pulse Oximeter] 90 84 Respiratory Rate 18 16 Blood Pressure [Ri ght Upper Arm] 186/81 H 130/81 Pulse Oximetry 97 98 Oxygen Delivery Me thod Room Air Room Air Course Vital Signs Vital signs: Initial Vital Signs Temperature 98.3 F 09/21/24 15:22 Temperature Source Temporal Artery Scan 09/21/24 15:22 Pulse Rate 90 09/21/24 15:22 Pulse Rhythm Regular 09/21/24 15:22 Pulse Strength 3+ Normal 09/21/24 15:22 Respiratory Rate 18 09/21/24 15:22 Blood Pressure 186/81 H 09/21/24 15:22 Blood Pressure Mean 116 H 09/21/24 15:22 Blood Pressure Position Sitting 09/21/24 15:22 Pulse Oximetry 97 09/21/24 15:22 Oxygen Delivery Method Room Air 09/21/24 15:22 Vital Signs Temperature 98.3 F 09/21/24 15:22 Pulse Rate 90 09/21/24 15:22 Respiratory Rate 18 09/21/24 15:22 Blood Pressure 186/81 H 09/21/24 15:22 Pulse Oximetry 97 09/21/24 15:22 Oxygen Delivery Method Room Air 09/21/24 15:22 Temperature 98.3 F 09/21/24 15:22 Pulse Rate 84 09/21/24 17:06 Respiratory Rate 16 09/21/24 17:06 Blood Pressure 130/81 09/21/24 17:06 Pulse Oximetry 98 09/21/24 17:06 Oxygen Delivery Method Room Air 09/21/24 17:06 MDM - Abdominal Pain MDM Narrative Medical decision making narrative: Patient is a 59-year-old female presenting for abdominal pain and chest pain. The differential diagnosis of chest pain is broad and includes common etiologies such as musculoskeletal strain, GERD, pneumonia, etc. More serious etiologies considered include PE, coronary artery disease, pneumothorax, aortic dissection, aortic aneurysm. I do not believe this is a PE, aortic dissection, aortic aneurysm. She does have a history of coronary artery disease I will do a troponin and EKG. Chest x-ray ordered to look for signs of pneumonia or pneumothorax. For her abdominal pain differential includes splenic issues. Could also be a related to her kidney. With her being position was this seems likely to be musculoskeletal will do a CT scan with IV contrast for better evaluation for possible splenic infarcts, splenic lesions, kidney lesions, nephrolithiasis. She is not wanting anything for pain at this time. Will do a CBC, CMP, lipase, magnesium, urinalysis. Patient EKG shows no acute concerning abnormalities. Troponin is also within normal limits. Considering length of chest symptoms I do not believe repeat troponin is necessary. If her troponin went be elevating it will likely occurred already within these 3 days. Chest x-ray reviewed by myself and the radiologist shows no acute concerning abnormalities. Considering this chest pain is only going on for short times and she describes as an achy sensation that is completely different from her previous OH I do not believe further workup is necessary here in the emergency department. Do not believe she needs to be monitored. Lab work overall shows no acute concerning abnormalities. She does have elevated AST and ALT. They were previously elevated but have gone up more with AST going from 40 to 84 and the ALT going from [address] scan returned showing no acute concerning abnormalities. Is mildly constipated but that is unlikely causing his symptoms. Considering symptoms seem to be positional this very well could be musculoskeletal in nature. Overall I do believe she is safe for discharge. I did former to follow-up with her primary care provider about her LFTs. She states she has an appointment in 1 month. This seems reasonable for follow-up. She will be discharged Lab Data Labs: Lab Results 09/21/24 09/21/24 09/21/24 Range/Units 15:40 15:45 16:27 WBC 10.53 (4.50-11.00) K/uL RBC 4.78 (4.00-5.20) m/uL Hgb 14.3 (12.0-16.0) gm/dL Hct 42.0 (33.0-51.0) % MCV 88 (80-100) fL MCH 30 (26-34) pg MCHC 34 (32-36) gm/dL RDW Coeff of Loli 12.8 (11.5-15.5) % Plt Count 268 (140-440) K/uL Neut % (Auto) 64.8 (42.0-72.0) % Lymph % (Auto) 23.4 (20-44) % Bladen % (Auto) 9.1 (0.0-11.0) % Eos % (Auto) 1.1 (0.0-7.0) % Baso % (Auto) 0.5 (0.0-3.0) % Neut # (Auto) 6.82 (1.7-7.0) K/uL Lymph # (Auto) 2.46 (0.90-2.90) K/uL Bladen # (Auto) 1.00 H (0.00-0.90) K/UL Eos # (Auto) 0.12 (0.00-0.50) K/uL Baso # (Auto) 0.05 (0.00-0.30) K/uL Abs Immat Gran (auto) 0.12 (0.00-0.30) K/uL Imm/Tot Granulo (auto) 1.1 % Sodium 139 (135-149) mmol/L Potassium 3.8 (3.6-5.1) mmol/L Chloride 101 (96-114) mmol/L Carbon Dioxide 28 (20-32) mmol/L Anion Gap 10 (7-15) mEq/L BUN 22 (7-30) mg/dL Creatinine 0.9 (0.5-1.5) mg/dL Estimated Creat Clear 67.07 Estimated GFR 75 ml/min Glucose 94 (60-115) mg/dL Calcium 9.8 (8.4-10.6) mg/dL Magnesium 1.8 (1.5-2.6) mg/dL Total Bilirubin 0.7 (0.1-1.5) mg/dL AST 84 H (12-35) U/L ALT 124 H (4-35) U/L Alkaline Phosphatase 102 (40-150) U/L Total Protein 8.1 (6.0-8.3) g/dL Albumin 4.8 (3.3-5.0) g/dL Lipase 72 (23-300) U/L Urine Color Yellow (Yellow) Urine Appearance Slightly Cloudy A (Clear) Urine pH 6.0 (5.0-8.5) Ur Specific Ferdinand 1.020 (1.000-1.030) Urine Protein Negative (Negative) Urine Glucose (UA) Negative (Negative) Urine Ketones Negative (Negative) Urine Blood Trace-intact A (Negative) Urine Nitrite Negative (Negative) Urine Bilirubin Negative (Negative) Urine Urobilinogen 0.2 (0.2-1.0) Ur Leukocyte Esterase Negative (Negative) Urine RBC 0-2 (0-2) Urine WBC 0-2 (0-5) Ur Squamous Epith Cells Few (None-Few) Urine Bacteria Moderate A (None) POC Troponin I 0.00 L (0.01-0.04) ng/ml Imaging Data Chest x-ray: Attestation: I have reviewed the pertinent imaging results. Radiologist's impression: No acute cardiopulmonary disease. Dictated by Nasir Lewis MD @ 09/21/2024 5:20:[address] scan abdomen and pelvis: Attestation: I have reviewed the pertinent imaging results. Radiologist's impression: 1. Small to moderate stool burden. No evidence of bowel obstruction. 2. No hydronephrosis or obstructing renal calculi. Please note that all CT scans at this facility use dose modulation, iterative reconstruction, and/or weight-based dosing when appropriate to reduce radiation dose to as low as reasonably achievable. Dictated by Nasir Lewis MD @ 09/21/2024 5:29:58 PM ECG Data Attestation: I personally reviewed and interpreted this ECG as follows: Prior ECG tracings: available for review Interpretation: Normal sinus rhythm with a rate of 76 beats per minute, normal intervals, normal axis, no ST or T-wave abnormalities. Previous EKG on file showed a STEMI. Discharge Plan Discharge Clinical Impression: Atypical chest pain Abdominal pain Qualifiers: Abdominal location: left upper quadrant Qualified Code(s): R10.12 - Left upper quadrant pain Patient Disposition: Home, Self-Care Condition: Stable Instructions: Abdominal Pain (ED), Noncardiac Chest Pain (ED) Additional Instructions: I cannot say exactly was causing his abdominal pain. In may be musculoskeletal in nature considering it is positional. Your CT scan showed no concerning abnormalities. The only abnormality seen was an elevation in your AST and ALT which are liver function tests. They have been previously elevated but they are slightly more elevated now. Do recommend follow-up with your primary care provider. You also may want to follow-up with your police liaison officer about your chest pain. Prescriptions: No Action chlorthalidone 25 mg tablet 25 mg PO DAILY losartan 100 mg tablet 100 mg PO DAILY metoprolol succinate 100 mg tablet extended release 24 hr 100 mg PO DAILY clopidogrel 75 mg tablet 75 mg PO DAILY aspirin [Adult Aspirin Regimen] 81 mg tablet,delayed release (DR/EC) 81 mg PO DAILY atorvastatin 80 mg tablet 80 mg PO QPM Follow Up/Referrals: Provider,Not a Local [Non-Staff, Family Practice] Stand Alone Forms: [employer] Medical Info Instructions
== END 2024-09-21 18:08 | disposition home or self-care (01) ==
PROVIDERS: Emergency Provider Student in an Organized Health Care Education/Training Program; PCP Family Medicine
DX: R10.12 Left upper quadrant pain (principal); R07.9 Chest pain, unspecified
CPT/HCPCS: 36415; 71046; 74177; 80053; 81001; 83690; 83735; 84484; 85025; 87086; 93005; 99284; 99285; Q9967